=== PATIENT | male | born 1965 | race Caucasian/White ===

== ENCOUNTER 2019-03-14 13:23 | Outpatient (CLI) | payer MEDICAID | END 2019-03-14 13:24 | disposition critical access hospital (66) | LOC: EMS 13:23 | PROVIDERS: ATTEND Surgery | DX: S69.92XA Unspecified injury of left wrist, hand and finger(s), initial encounter (principal); R51 Headache; R42 Dizziness and giddiness; S80.211A Abrasion, right knee, initial encounter; V17.4XXA Pedal cycle driver injured in collision with fixed or stationary object in traffic accident, initial encounter; Y93.55 Activity, bike riding; Y92.413 State road as the place of occurrence of the external cause | CPT/HCPCS: A0425; A0427; A0999 ==

== ENCOUNTER 2019-03-14 13:38 | Emergency (ER) | payer MEDICAID, OTHER ==
[2019-03-14] MEDS ORDERED: TETANUS/DIPHTHERIA/PERTUSSIS 0.5 ML SYRINGE IM ONE (14:04)
[2019-03-14] MEDS ORDERED: HYDROmorphone 1 MG/ML CARPUJECT IM STA (14:04)
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
[2019-03-14] MEDS ORDERED: SODIUM CHLORIDE 0.9% 1,000 ML IV ONE (14:45)
[2019-03-14] MEDS ORDERED: HYDROmorphone 1 MG/ML CARPUJECT IVP STA (14:45)
[2019-03-14] MEDS ORDERED: PROPOFOL 200 MG/20 ML VIAL IVP STA (15:01)
--- NOTE | 2019-03-14 15:44 | XRAY Report ---
Reason: L wrist pain/ R knee and big toe pain Procedure Date: 03/14/2019 Accession Number: [id number] / [id number] Procedure: XR - Knee 4 View RT CPT Code: FULL RESULT: EXAM: RIGHT KNEE RADIOGRAPHY EXAM DATE: 03/14/2019 02:10 PM. CLINICAL HISTORY: L wrist pain/ R knee and big toe pain. COMPARISON: None. TECHNIQUE: 3 views. FINDINGS: Bones: Normal. No fractures or bone lesions. Joints: Normal. No effusion. No subluxations. Soft Tissues: Normal. No soft tissue swelling. IMPRESSION: No acute displaced fracture or malalignment. RADIA
[2019-03-14 16:13] VITALS: BP 132/91
--- NOTE | 2019-03-14 16:46 | XRAY Report ---
Reason: post reduction Procedure Date: 03/14/2019 Accession Number: [id number] / [id number] Procedure: XR - Forearm LT CPT Code: FULL RESULT: EXAM: LEFT FOREARM RADIOGRAPHY EXAM DATE: 03/14/2019 04:01 PM. CLINICAL HISTORY: Post reduction. COMPARISON: WRIST 3 VIEW LT 03/14/2019 2:11 PM. TECHNIQUE: 2 views. FINDINGS: Bones: Ulnar styloid and distal radial metaphyseal fractures demonstrate improved alignment postreduction and splinting. No other bony abnormalities identified. Joints: Normal. No effusions or subluxations in the visualized wrist or elbow joints. IMPRESSION: Improved alignment of ulnar styloid and distal radial metaphyseal fractures post reduction. RADIA
--- NOTE | 2019-03-14 19:28 | XRAY Report ---
Reason: L wrist pain/ R knee and big toe pain Procedure Date: 03/14/2019 Accession Number: [id number] / [id number] Procedure: XR - Wrist 3 View LT CPT Code: FULL RESULT: EXAM: LEFT WRIST RADIOGRAPHY EXAM DATE: 03/14/2019 02:10 PM. CLINICAL HISTORY: L wrist pain/ R knee and big toe pain. COMPARISON: None. TECHNIQUE: 3 views. FINDINGS: Bones: Acute transverse displaced, intra-articular fracture is seen through the distal left radius with dorsal angulation. There is acute transverse fracture of styloid process of left ulna as well. Joints: Radiocarpal joints are well aligned. Soft Tissues: Significant soft tissue swelling is seen at the left wrist. IMPRESSION: Acute transverse displaced intra-articular fracture through distal left radius with dorsal angulation. Acute transverse fracture of styloid process of left ulna. No malalignment. Significant soft tissue swelling at left wrist. RADIA
--- NOTE | 2019-03-14 20:41 | XRAY Report ---
Reason: L wrist pain/ R knee and big toe pain Procedure Date: 03/14/2019 Accession Number: [id number] / [id number] Procedure: XR - Toe(s) RT CPT Code: FULL RESULT: EXAM: RIGHT TOE RADIOGRAPHY EXAM DATE: 03/14/2019 02:10 PM. CLINICAL HISTORY: L wrist pain/ R knee and big toe pain. COMPARISON: None. TECHNIQUE: 3 views. FINDINGS: Bones: An acute appearing comminuted and intra-articular fracture through the distal phalanx of right great toe. No malalignment. Joints: Normal. No subluxations. Soft Tissues: Mild overlying soft tissue swelling. IMPRESSION: An acute appearing comminuted and intra-articular fractures of the distal pharynx of right great toe with mild overlying soft tissue swelling. No malalignment. RADIA
== END 2019-03-14 17:15 | disposition home or self-care (01) ==
LOC: EDUNIT# → ED 13:38
DX: S52.572A Other intraarticular fracture of lower end of left radius, initial encounter for closed fracture (principal); S52.602A Unspecified fracture of lower end of left ulna, initial encounter for closed fracture; S92.421A Displaced fracture of distal phalanx of right great toe, initial encounter for closed fracture; S80.211A Abrasion, right knee, initial encounter; S60.512A Abrasion of left hand, initial encounter; V18.0XXA Pedal cycle driver injured in noncollision transport accident in nontraffic accident, initial encounter; Y93.55 Activity, bike riding; Y92.410 Unspecified street and highway as the place of occurrence of the external cause; Z23 Encounter for immunization
CPT/HCPCS: 25605; 73090; 73110; 73564; 73660; 90471; 90715; 94770; 96372; 96374; 99152; 99283; J1170

== ENCOUNTER 2019-03-18 08:57 | Emergency (ER) | payer MEDICAID ==
[2019-03-18 09:26] VITALS: BP 165/102
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
== END 2019-03-18 11:16 | disposition home or self-care (01) ==
LOC: ED 08:57
DX: G89.11 Acute pain due to trauma (principal); M25.532 Pain in left wrist; S62.102A Fracture of unspecified carpal bone, left wrist, initial encounter for closed fracture; W19.XXXA Unspecified fall, initial encounter
CPT/HCPCS: 99282

== ENCOUNTER 2019-04-05 11:24 | Day surgery (SDC) | payer MEDICAID ==
[~2019-04-05 11:24] MED LIST: BUPIVACAINE 0.25% PF 30 ML VIAL ONE; CEFAZOLIN SODIUM IN 0.9 % NACL 2 GM/100 ML BAG IV ONE
[2019-04-05] MEDS ORDERED: LACTATED RINGERS 1,000 ML IV ONE ×2 (11:26→13:57)
--- NOTE | 2019-04-05 12:20 | ANESTHESIA ---
Pre-Anesthesia VS, & Labs - Diagnosis left wrist fracture - Procedure orif of left wrist Vital Signs: Temp Pulse Resp BP Pulse Ox 36.2 C L 82 12 197/109 H 97 04/05/19 11:27 04/05/19 11:27 04/05/19 11:27 04/05/19 11:27 04/05/19 11:27 Height 5 ft 5 in Weight (kg) 78 kg Body Mass Index 29.2 - NPO >8 hours Home Medications and Allergies Home Medications: Ambulatory Orders Ibuprofen [Ibu] 800 mg PO Q6HR PRN 04/05/19 Naproxen Sodium [Aleve] 440 mg PO PRN PRN 04/05/19 Ibuprofen [Ibu] 800 mg PO Q6HR PRN 04/05/19 Naproxen Sodium [Aleve] 440 mg PO PRN PRN 04/05/19 Allergies/Adverse Reactions: Allergies Allergy/AdvReac Type Severity Reaction Status Date / Time No Known Drug Allergies Allergy Verified 03/14/19 13:48 Anes History & Medical History - Anesthetic History Anesthesia Complications: reports: No previous complications Family history of Anesthesia Complications: Denies Family history of Malignant Hyperthermia: Denies - Medical History Cardiovascular: reports: None Pulmonary: reports: None Gastrointestinal: reports: None Urinary: reports: None Musculoskeletal: reports: Osteoarthritis Endocrine/Autoimmune: reports: None Skin: reports: Psoriasis Smoking Status: Never smoker Exam General: Alert, Oriented x3, Cooperative, No acute distress Dental: Other (no teeth) Neck Mobility: Normal Mallampati classification: II Thyromental Distance: greater than 6 cm Respiratory: Lungs clear, Normal breath sounds, No respiratory distress, No accessory muscle use Cardiovascular: Regular rate, Normal S1, Normal S2, No murmurs Plan Anesthesia Type: General Consent for Procedure(s) Verified and Reviewed: Yes Code Status: Attempt Resuscitation ASA classification: 2-Mild systemic disease Is this case an emergency?: No
[2019-04-05] MEDS ORDERED: BUPIVACAINE 0.25% PF 30 ML VIAL SUBQ ONE ×2 (13:35)
[2019-04-05] MEDS ORDERED: PROPOFOL 200 MG/20 ML VIAL IVP ONE (13:40)
[2019-04-05] MEDS ORDERED: MORPHINE 10 MG/ML VIAL IVP ONE (13:40)
[2019-04-05] MEDS ORDERED: GLYCOPYRROLATE 1 MG/5 ML VIAL IVP ONE (13:40)
[2019-04-05] MEDS ORDERED: ROCURONIUM 50 MG/5 ML VIAL IVP ONE (13:40)
[2019-04-05] MEDS ORDERED: fentaNYL 100 MCG/2 ML VIAL IVP ONE (13:40)
[2019-04-05] MEDS ORDERED: ONDANSETRON 4 MG/2 ML VIAL IVP ONE (13:40)
[2019-04-05] MEDS ORDERED: DEXAMETHASONE 4 MG/ML VIAL IVP ONE (13:40)
[2019-04-05] MEDS ORDERED: LIDOCAINE-MPF 2% 5 ML VIAL IM ONE (13:40)
[2019-04-05] MEDS ORDERED: oxyCODONE 5 MG TABLET PO PRN (14:20)
[2019-04-05] MEDS ORDERED: HYDROmorphone 0.5 MG/0.5 ML SYRINGE IVP PRN (14:20)
[2019-04-05] MEDS: fentaNYL 100 MCG/2 ML VIAL ONE ×3 (14:51→15:18)
[2019-04-05] MEDS ORDERED: HYDROmorphone 0.5 MG/0.5 ML SYRINGE ONE (15:22)
[2019-04-05] MEDS ORDERED: oxyCODONE 5 MG TABLET ONE (15:47)
[2019-04-05 16:02] VITALS: BP 162/100
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
== END 2019-04-05 11:25 | disposition home or self-care (01) ==
LOC: SDS 11:24
PROVIDERS: ATTEND Orthopaedic Surgery
PROC: 0PSJ04Z Reposition Left Radius with Internal Fixation Device, Open Approach (ICD-10-PCS; principal; 2019-04-05 12:30)
DX: S52.572P Other intraarticular fracture of lower end of left radius, subsequent encounter for closed fracture with malunion (principal); S52.612D Displaced fracture of left ulna styloid process, subsequent encounter for closed fracture with routine healing; F17.200 Nicotine dependence, unspecified, uncomplicated; Z86.19 Personal history of other infectious and parasitic diseases
CPT/HCPCS: 25609; A9270; J0690; J1170; J7120

== ENCOUNTER 2019-05-10 09:29 | Outpatient (CLI) | payer MEDICAID ==
--- NOTE | 2019-05-11 09:27 | MRI Report ---
Reason: CHRONIC LOW BACK PAIN AND POSSIBLE PSORIATIC ARTHR Procedure Date: 05/10/2019 Accession Number: [id number] / [id number] Procedure: MRI - Lumbar Spine W/O CPT Code: FULL RESULT: EXAM: MRI LUMBAR SPINE WITHOUT CONTRAST EXAM DATE: 05/10/2019 10:28 AM. CLINICAL HISTORY: CHRONIC LOW BACK PAIN AND POSSIBLE PSORIATIC ARTHRITIS. COMPARISON: None. TECHNIQUE: Multiplanar, multisequence T1-weighted and fluid-sensitive sequences of the lumbar spine from T12 to S1 without contrast. Other: None. FINDINGS: Spinal Canal: The conus terminates at mid L1. The conus medullaris and cauda equina are unremarkable. Alignment: No scoliosis or spondylolisthesis. Bone Marrow: Five [id number] lumbar vertebral bodies are assumed. Small Schmorl's node at the T11 inferior endplate. Small hemangioma within L3 vertebral body. No acute fracture or bone lesions. Disk Levels/Facets: L5-S1: Minimal disk bulge. No stenosis. L4-L5: Minimal posterior disk bulge. Mild facet arthropathy. Mild left and minimal right foraminal stenosis. L3-L4: Small disk bulge. Minimal canal narrowing. Mild foraminal stenosis. L2-L3: Unremarkable. L1-L2: Unremarkable. T12-L1: Unremarkable. Musculature: Normal. No edema or fatty atrophy. Other: The partially visualized retroperitoneum is unremarkable. IMPRESSION: 1. Mild degenerative disk changes from L3-L4 and L5-S1. 2. Mild left and minimal right foraminal stenosis at L4-L5. Mild bilateral foraminal stenosis at L3-L4. Comment: The following findings are so common in adults without low back pain that while we report their presence, they must be interpreted with caution and in the context of the clinical situation. (Reference Parisk et al, Spine 2001) Prevalence of findings in patients without low back pain: Disk degeneration (any evidence): 92% Disk desiccation/T2 signal loss: 83% Disk height loss: 56% Disk bulge: 64% Disk protrusion: 32% Annular tear/high intensity zone: 38% RADIA
== END 2019-05-10 09:30 | disposition home or self-care (01) ==
LOC: DI 09:29
PROVIDERS: ATTEND Preventive Medicine Public Health & General Preventive Medicine
DX: M51.37 Other intervertebral disc degeneration, lumbosacral region (principal); M48.07 Spinal stenosis, lumbosacral region
CPT/HCPCS: 72148

== ENCOUNTER 2020-12-24 14:10 | Outpatient (CLI) | payer MEDICAID | END 2020-12-24 14:11 | disposition home or self-care (01) | LOC: DI.N 14:10 | PROVIDERS: ATTEND Orthopaedic Surgery | DX: Z53.9 Procedure and treatment not carried out, unspecified reason (principal) ==

== ENCOUNTER 2020-12-24 14:20 | Outpatient (CLI) | payer MEDICAID ==
[2020-12-24 17:55] LABS: BASOPHILS # (AUTO) 0.1 10^3/uL (0.0-0.1); BASOPHILS % (AUTO) 0.5 %; EOSINOPHILS # (AUTO) 0.1 10^3/uL (0.0-0.7); EOSINOPHILS % (AUTO) 0.5 %; HCT - HEMATOCRIT 53.5 % (42.0-52.0); HGB - HEMOGLOBIN 18.3 g/dL (14.0-18.0); LYMPHOCYTES # (AUTO) 2.2 10^3/uL (1.5-3.5); LYMPHOCYTES % (AUTO) 17.9 %; MEAN CORPUSCULAR HEMOGLOBIN 31.8 pg (27.0-31.0); MEAN CORPUSCULAR HGB CONC 34.2 g/dL (32.0-36.0); MEAN PLATELET VOLUME 9.3 fL (7.4-11.4); MONOCYTES % (AUTO) 8.2 %; NEUTROPHILS # (AUTO) 8.9 10^3/uL (1.5-6.6); NEUTROPHILS % (AUTO) 72.5 %; PLT - PLATELET COUNT 298 10^3/uL (130-450); RED BLOOD COUNT 5.75 10^6/uL (4.70-6.10); WHITE BLOOD COUNT 12.3 x10^3/uL (4.8-10.8)
[2020-12-24 18:18] LABS: ALBUMIN 4.8 g/dL (3.2-5.5); ALKALINE PHOSPHATASE 81 IU/L (42-121); ALT ALANINE AMINOTRANSFERASE 21 IU/L (10-60); AST ASPARTATE AMINOTRANSFERASE 20 IU/L (10-42); BILIRUBIN,DIRECT 0.1 mg/dL (0.1-0.5); BILIRUBIN,TOTAL 0.6 mg/dL (0.2-1.0); BUN - BLOOD UREA NITROGEN 14 mg/dL (6-20); CALCIUM 9.7 mg/dL (8.5-10.3); CARBON DIOXIDE - CO2 25 mmol/L (21-32); CHLORIDE 105 mmol/L (101-111); CHOL/HDL RATIO 4.5 (<5.0); CHOLESTEROL 200 mg/dL; CREATININE 0.9 mg/dL (0.6-1.2); GFR - MDRD 87 (>89); GLUCOSE 112 mg/dL (70-100); HDL CHOLESTEROL 44 mg/dL; LDL CHOLESTEROL,CALCULATED 138 mg/dL; LDL/HDL RATIO 3.1 (<3.6); POTASSIUM 4.3 mmol/L (3.5-5.0); SODIUM 141 mmol/L (135-145); TOTAL PROTEIN 8.2 g/dL (6.7-8.2); TRIGLYCERIDES 91 mg/dL; VLDL CHOLESTEROL 18 mg/dL
[2020-12-25 12:32] LABS: HEPATITIS B CORE AB TOTAL REACTIVE (NON-REACTIVE); HEPATITIS B SURFACE ANTIGEN NON-REACTIVE (NON-REACTIVE); HEPATITIS C ANTIBODY REACTIVE (NON-REACTIVE)
[2020-12-26 12:02] LABS: NIL 0.02 IU/mL
[2020-12-27 08:21] LABS: HCV RNA QNT <1.18 NOT DETECTED Log IU/mL (NOT DETECTED); HCV RNA QUANT RT PCR <15 NOT DETECTED IU/mL (NOT DETECTED)
== END 2020-12-24 14:21 | disposition home or self-care (01) ==
LOC: LAB.N 14:20
PROVIDERS: ATTEND Orthopaedic Surgery
DX: L40.0 Psoriasis vulgaris (principal)
CPT/HCPCS: 36415; 80048; 80061; 80076; 83721; 85025; 86317; 86480; 86704; 86803; 87340

== ENCOUNTER 2021-10-07 22:26 | Outpatient (CLI) | payer MEDICAID | END 2021-10-07 22:27 | disposition critical access hospital (66) | LOC: EMS 22:26 | DX: R07.9 Chest pain, unspecified (principal); R06.00 Dyspnea, unspecified; R61 Generalized hyperhidrosis | CPT/HCPCS: A0425; A0427; A0999 ==

== ENCOUNTER 2021-10-07 22:48 | Emergency (ER) | payer MEDICAID ==
--- NOTE | 2021-10-07 23:21 | XRAY Report ---
PROCEDURE: Chest 1 View X-Ray INDICATIONS: chest pain TECHNIQUE: One view of the chest was acquired. COMPARISON: None. FINDINGS: Surgical changes and devices: None. Lungs and pleura: Lungs are clear without acute consolidation. No pleural effusions or pneumothorax. Mediastinum: Mediastinal contours appear normal. Heart size is normal. Bones and chest wall: No suspicious bony lesions. Overlying soft tissues appear unremarkable. IMPRESSION: 1. No acute cardiopulmonary disease. Reviewed by: Nishant Estrella MD on 10/07/2021 11:19 PM [facility] Approved by: Nishant Estrella MD on 10/07/2021 11:19 PM [facility] Station ID: [id number]
--- NOTE | 2021-10-07 23:27 | ED Physician Documentation ---
PD HPI CHEST PAIN - Stated complaint Stated Complaint: CP - Chief complaint Chief Complaint: Cardiac - History obtained from History obtained from: Patient - History of Present Illness Timing - onset: Enter time (21:00) Timing - onset during: Rest Timing - duration: Minutes (5) Timing - details: Abrupt onset Pain level max: 10 Pain level now: 0 Quality: Pain Location: Substernal Radiation: Other (no radiation) Improved by: Nothing Worsened by: Other (no exacerbating factors) Associated symptoms: Shortness of air Similar symptoms before: Has not had sx before Recently seen: Not recently seen - Additional information Additional information: c/o sudden onset SSCP at approximately 9 PM tonight while at rest having conversation with his girlfriend. Pain was associated with dyspnea. There were no exacerbating nor ameliorating factors and the symptoms resolved completely within approximately 5 minutes of onset. He presents asymptomatic. He is COVID vaccinated with booster. Review of Systems Constitutional: reports: Reviewed and negative Cardiac: reports: Chest pain / pressure (resolved). denies: Palpitations, Pedal edema, Calf pain Respiratory: reports: Dyspnea (resolved), Cough (baseline). denies: Hemoptysis, Wheezing GI: reports: Reviewed and negative Musculoskeletal: denies: Extremity swelling PD PAST MEDICAL HISTORY - Past Medical History Past Medical History: Yes Cardiovascular: Hypertension, High cholesterol Respiratory: None Endocrine/Autoimmune: None GI: GERD, Hepatitis : None HEENT: None Psych: Depression, Anxiety Musculoskeletal: Osteoarthritis Derm: Psoriasis - Past Surgical History Past Surgical History: No - Present Medications Home Medications: Ambulatory Orders Medication Instructions Recorded Confirmed Ibuprofen [Ibu] 800 mg PO Q6HR PRN 04/05/19 04/05/19 Naproxen Sodium [Aleve] 440 mg PO PRN PRN 04/05/19 04/05/19 - Allergies Allergies/Adverse Reactions: Allergies Allergy/AdvReac Type Severity Reaction Status Date / Time No Known Drug Allergies Allergy Verified 10/07/21 22:55 - Social History Does the pt smoke?: Yes Smoking Status: Current every day smoker Does the pt drink ETOH?: No Does the pt have substance abuse?: No - Immunizations Immunizations are current?: Yes PD ED PE NORMAL - Vitals Vital signs reviewed: Yes - General General: Alert and oriented X 3, No acute distress, Well developed/nourished - Neck Neck: Supple, no meningeal sign - Cardiac Cardiac: RRR, No murmur - Respiratory Respiratory: No respiratory distress, Clear bilaterally - Abdomen Abdomen: Soft, Non tender - Extremities Extremities: No edema Results - Vitals Vitals: Oxygen O2 Source Room air - EKG (time done) No standard instances Rate: Rate (enter#) (70) Rhythm: NSR [place]: Normal Intervals: Normal [place] QRS: Normal Ischemia: Normal ST segments, T wave inversion (flat/inverted T V5, V6, I, aVL) - Labs Labs: Laboratory Tests 10/07/21 10/07/21 10/07/21 23:23 23:23 23:23 WBC 14.1 H RBC 5.12 Hgb 16.6 Hct 46.6 MCV 91.0 MCH 32.4 H MCHC 35.6 RDW 11.9 L Plt Count 259 MPV 9.0 Neut # (Auto) 9.4 H Lymph # (Auto) 2.8 Yell # (Auto) 1.6 H Eos # (Auto) 0.2 Baso # (Auto) 0.1 Absolute Nucleated RBC 0.00 Band Neuts % (Manual) Not Reportable Abnorm Lymph % (Manual) Not Reportable Nucleated RBC % 0.0 Neutrophils # (Manual) Not Reportable Lymphocytes # (Manual) Not Reportable Monocytes # (Manual) Not Reportable Eosinophils # (Manual) Not Reportable Basophils # (Manual) Not Reportable Differential Comment MANUAL=AUTO DIFF Platelet Estimate NORMAL (130-450,000) RBC Morph Micro Appear NORMAL APPEARANCE PT 12.3 INR 1.1 APTT 30.7 Sodium 139 Potassium 3.8 Chloride 102 Carbon Dioxide 26 Anion Gap 11.0 BUN 10 Creatinine 0.8 Estimated GFR (MDRD) 99 Glucose 105 H Calcium 9.0 Total Bilirubin 0.3 AST 19 ALT 21 Alkaline Phosphatase 59 Troponin I High Sens B-Natriuretic Peptide Total Protein 7.0 Albumin 4.1 Globulin 2.9 Albumin/Globulin Ratio 1.4 Lipase 35 10/07/21 10/07/21 23:23 23:23 WBC RBC Hgb Hct MCV MCH MCHC RDW Plt Count MPV Neut # (Auto) Lymph # (Auto) Yell # (Auto) Eos # (Auto) Baso # (Auto) Absolute Nucleated RBC Band Neuts % (Manual) Abnorm Lymph % (Manual) Nucleated RBC % Neutrophils # (Manual) Lymphocytes # (Manual) Monocytes # (Manual) Eosinophils # (Manual) Basophils # (Manual) Differential Comment Platelet Estimate RBC Morph Micro Appear PT INR APTT Sodium Potassium Chloride Carbon Dioxide Anion Gap BUN Creatinine Estimated GFR (MDRD) Glucose Calcium Total Bilirubin AST ALT Alkaline Phosphatase Troponin I High Sens 7.7 B-Natriuretic Peptide 33 Total Protein Albumin Globulin Albumin/Globulin Ratio Lipase - Rads (name of study) chest xray Radiology: Prelim report reviewed, See rad report PD MEDICAL DECISION MAKING - ED course Complexity details: reviewed results, re-evaluated patient, considered differential, d/w patient ED course: presents after sudden onset chest pain with dyspnea that lasted approximately 5 minutes. No concerning findings on EKG, CXR, nor blood tests (mild leukocytosis noted). Results d/w patient, advised to follow up with his primary care provider for reevaluation and consideration of further testing. Return precautions discussed Departure - Departure Disposition: 01 Home, Self Care Clinical Impression: Chest pain Condition: Good Instructions: ED Chest Pain Atypical Unkn Cause Follow-Up: Ibrahima Loomis [Primary Care Provider] - Comments: The cause of your chest pain is not apparent at this time; your EKG, CXR, and blood tests are all reassuring. You should follow up with your primary care provider, as further testing might be indicated (such as a stress test); this is at your primary care provider's discretion. Discharge Date/Time: 10/08/21 01:52
[2021-10-07 23:30] LABS: BASOPHILS # (AUTO) 0.1 10^3/uL (0.0-0.1); BASOPHILS % (AUTO) 0.7 %; EOSINOPHILS # (AUTO) 0.2 10^3/uL (0.0-0.7); EOSINOPHILS % (AUTO) 1.6 %; HCT - HEMATOCRIT 46.6 % (42.0-52.0); HGB - HEMOGLOBIN 16.6 g/dL (14.0-18.0); LYMPHOCYTES # (AUTO) 2.8 10^3/uL (1.5-3.5); LYMPHOCYTES % (AUTO) 19.7 %; MEAN CORPUSCULAR HEMOGLOBIN 32.4 pg (27.0-31.0); MEAN CORPUSCULAR HGB CONC 35.6 g/dL (32.0-36.0); MONOCYTES # (AUTO) 1.6 10^3/uL (0.0-1.0); MONOCYTES % (AUTO) 11.1 %; NEUTROPHILS # (AUTO) 9.4 10^3/uL (1.5-6.6); NEUTROPHILS % (AUTO) 66.5 %; PLT - PLATELET COUNT 259 10^3/uL (130-450); RED BLOOD COUNT 5.12 10^6/uL (4.70-6.10); RED CELL DISTRIBUTION WIDTH 11.9 % (12.0-15.0); WHITE BLOOD COUNT 14.1 x10^3/uL (4.8-10.8)
[2021-10-07 23:33] LABS: INR 1.1 (0.8-1.2); PT - PROTHROMBIN TIME 12.3 secs (9.9-12.6)
[2021-10-07 23:40] LABS: PARTIAL THROMBOPLASTIN TIME 30.7 secs (24.9-33.3)
[2021-10-07 23:52] LABS: DIFFERENTIAL COMMENT MANUAL=AUTO DIFF; PLATELET ESTIMATE, MANUAL NORMAL (130-450,000) (NORMAL); RBC MORPHOLOGY (MULTIPLE) NORMAL APPEARANCE (NORMAL)
[2021-10-07 23:56] LABS: ALBUMIN 4.1 g/dL (3.2-5.5); ALBUMIN/GLOBULIN RATIO 1.4 (1.0-2.2); BILIRUBIN,TOTAL 0.3 mg/dL (0.2-1.0); CREATININE 0.8 mg/dL (0.6-1.2); POTASSIUM 3.8 mmol/L (3.5-5.0)
[2021-10-08 01:53] VITALS: BP 125/79
== END 2021-10-08 01:52 | disposition home or self-care (01) ==
LOC: EDBD → EDUNIT# → ED 22:48 → SUPCPDRO 22:48 → ED 10-08 01:52
DX: R07.89 Other chest pain (principal); I10 Essential (primary) hypertension; F17.200 Nicotine dependence, unspecified, uncomplicated
CPT/HCPCS: 36415; 80053; 83690; 83880; 84484; 85025; 85610; 85730; 93005; 99284

== ENCOUNTER 2022-09-24 13:18 | Outpatient (CLI) | payer MEDICAID ==
--- NOTE | 2022-09-24 13:48 | XRAY Report ---
PROCEDURE: Chest 2 View X-Ray INDICATIONS: SOB TECHNIQUE: 2 views of the chest were acquired. COMPARISON: 10/07/2021 FINDINGS: Peribronchial cuffing and prominence of the interstitium, without consolidation or pleural effusion. Heart size is normal. Mediastinal contour is unchanged. No acute or suspicious osseous lesi ons. IMPRESSION: Peribronchial cuffing and mildly prominent interstitium can be seen with bronchitis and atypical infe ction, versus edema. Consider future imaging surveillance to assess for resolution. Reviewed by: Jonnie Albert MD on 09/24/2022 12:47 PM [place] Approved by: Jonnie Albert MD on 09/24/2022 12:47 PM [place] Station ID: [id number]
== END 2022-09-24 23:59 | disposition home or self-care (01) ==
LOC: DI.N 13:18
PROVIDERS: ATTEND Registered Nurse
DX: R91.8 Other nonspecific abnormal finding of lung field (principal)